=== PATIENT | female | born 1980 | race African-American/Black ===

== ENCOUNTER 2017-01-25 08:09 | Observation (INO) | payer BC ==
[~2017-01-25] VITALS: Ht 162.6 cm; Wt 103.4 kg
--- NOTE | ~2017-01-25 | OP ---
PATIENT NAME: LASHAUN CONROY MEDICAL RECORD: [id number] :78 LOCATION:D.M2 D.2118 ADMISSION DATE:01/25/17 SURGEON: SHARA MCFADDEN MD DATE OF OPERATION: 01/26/2017 PROCEDURE: Left heart cath, selective coronary angiography, right femoral artery approach. CATHETERS: A 5-Latvian sheath, radial and femoral. The procedure was well tolerated. The patient was returned to herrera, sheath removed. Adequate hemostasis. ExoSeal device was placed. FINDINGS: Left ventriculography in 30-degree [place] view: Normal wall motion, normal systolic function. CORONARY ANATOMY. LEFT MAIN: Left main is free of disease. LAD: Free of disease in the diagonal system. CIRCUMFLEX: Free of disease in the marginal system. RIGHT CORONARY ARTERY: Dominant artery, gives rise to PDA, free of disease. IMPRESSION: We were only able to cannulate the right coronary and this was using a guide catheter due to the tortuosity of the subclavian aortic junction. She will not be a candidate for radial artery in the future. TRANSINT:[id number] Voice Confirmation ID: [id number] DOCUMENT ID: [id number] SHARA MCFADDEN MD CC: [id number] DICTATION DATE: 01/26/17 0943 RECREATION MANAGER: 01/26/17 1047 ADM IN [facility] [address] [place] [address]
--- NOTE | ~2017-01-25 | HP ---
PATIENT: LASHAUN OROZCO MEDICAL RECORD: [id number] ACCOUNT: [id number] LOCATION:[address] : 79 ADMISSION DATE: 01/25/17 HISTORY AND PHYSICAL EXAMINATION HISTORY OF PRESENT ILLNESS: Ms. Orozco is a 36-year-old female, who presents to the Emergency Room with chest pain. States she woke up about 4:00 a.m. with left-sided chest pressure. She had some nausea with short of breath, had some left arm symptoms, later numbness. She came to the Emergency Room where she did not get relief until she was given a nitroglycerin. Her EKG shows nothing acute. Her initial cardiac enzymes are negative. She has a history of polycystic ovarian disease and has a strong family cardiac history. She does not smoke. She is placed in observation and a GI consult will be obtained. PAST MEDICAL HISTORY: Significant for known PCOS, -induced hypertension with preeclampsia. She is being worked up for an autoimmune disorder. She has a history of some depression. PAST SURGICAL HISTORY: Include gallbladder surgery, sections, cerclage times 2, tubal ligation and a D&C. ALLERGIES: None. HOME MEDICATIONS: Include metformin 500 t.i.d., bupropion 300 mg a day, docusate and Vyvanse. FAMILY HISTORY: Significant for cardiovascular disease and diabetes. SOCIAL HISTORY: She is never been a smoker. She does not drink. 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 REVIEW OF SYSTEMS: She denies fever. She denies chills or sweats, chest pain as above. She does say she does not have a very active lifestyle. There was some shortness of breath and nausea with above symptoms resolved now after nitroglycerin. No abdominal pain. Denies any recent weight loss. Denies any edema. Denies palpitations or orthopnea. PHYSICAL EXAMINATION: GENERAL: Pleasant, cooperative, no distress at this time. HEENT: Head is normocephalic, sclerae nonicteric. NECK: Soft and supple. HEART: Regular without murmur, rub or gallop. LUNGS: Clear. ABDOMEN: Soft. No rebound or guarding. EXTREMITIES: Lower extremities reveal no edema. NEUROLOGIC: Without any gross focal deficits. IMPRESSION: Chest pain, polycystic ovarian disease with insulin resistance, history of -induced hypertension. PLAN: Observation, check lipids and heart sensitive CRP, cardiology consult, cycle enzymes. We will hold meds for now. TRANSINT:[id number] Voice Confirmation ID: [id number] DOCUMENT ID: [id number] HISTORY AND PHYSICAL [id number] LASHAUN OROZCO MATTHEW DO CC: [id number] DICTATION DATE: 01/25/17 1153 MARKETING SYSTEMS MANAGER: 01/25/17 1214 ADM IN [facility] [address] [place] [address]
--- NOTE | ~2017-01-25 | CN ---
PATIENT NAME:LASHAUN CONROY MEDICAL RECORD: [id number] : 78 LOCATION:D. D.2118 ADMIT DATE: 01/25/17 ACCOUNT: [id number] CONSULTING PHYSICIAN: SHARA MCFADDEN MD REFERRING PHYSICIAN: SALOME VENEGAS DO DATE OF CONSULTATION: 01/25/2017 HISTORY OF PRESENT ILLNESS: A 36-year-old female with history of insulin resistance polycystic ovarian syndrome, admitted with chest pain, pressure and tightness, heaviness on chest, some nausea, queasiness with left arm tingling, resolved with nitroglycerin in the ER. She has a strong family history of both paternal and maternal coronary artery disease, cholesterol has been normal in a fasting state. We are asked to see her concerning cardiovascular status. Currently enzymes are negative. ECG without acute change, symptomatology has resolved. ALLERGIES: None known. MEDICATIONS: Includes Aldactone 25 b.i.d.; Vyvanse 40 daily; Ultram 50 every 8 hours p.r.n., metformin 500 mg daily. SOCIAL HISTORY: She is a nonsmoker and nondrinker. Able to take care of her ADLs. Currently been worked up for connective tissue disorders. REVIEW OF SYSTEMS: The patient reports easy bruising but reports no swollen glands. The patient reports no fever, no night sweats, no significant weight gain, no significant weight loss. No significant exercise tolerance. The patient reports no dry eyes, no irritation, no vision change. Patient reports no difficulty hearing and no ear pain. Patient reports no frequent nose bleeds or nose and sinus problems. Patient reports on arm pain on exertion. No shortness of breath while lying down. No history of heart murmur. Patient reports no cough, no wheezing or coughing up blood. Patient reports no abdominal pain, no vomiting. Normal appetite. No diarrhea and not vomiting blood. No nausea and no constipation. Patient reports no incontinence. No difficulty urinating. No hematuria. No increased frequency. Patient reports no muscle aches. No weakness, no arthralgias, no back pain. No swelling of the extremities. Patient reports no abnormal mole, no jaundice, no rashes. Reports no loss of consciousness. No weakness and no numbness. No seizures, dizziness, or headaches. The patient reports no depression, no sleep disturbance, feeling safe in a relationship and no alcohol abuse. Patient reports on fatigue. Reports no runny nose or sinus pressure. No itching, no hives, and no frequent sneezing. PHYSICAL EXAMINATION: GENERAL: Pleasant female in no acute distress, appears stated age. VITAL SIGNS: 91/72, pulse 86 and regular. HEENT: Normocephalic, atraumatic. NECK: No bruises are noted. HEART: Regular. LUNGS: Good air excursion. ABDOMEN: Soft, nontender. EXTREMITIES: Pulse well preserved, 2+. NEUROLOGIC: Grossly intact. DIAGNOSTIC DATA: ECG without acute changes. Enzymes are negative. CONSULT REPORT [id number] LASHAUN CONROY IMPRESSION: Chest pains. Had a previous chest pain, had no stress or echo at that time. Given recurrent symptomatology, possible other autoimmune disease filled up definitive diagnosis is warranted here. We will plan for diagnostic angiography. Risks and benefits were discussed. TRANSINT:[id number] Voice Confirmation ID: [id number] DOCUMENT ID: [id number] SHARA MCFADDEN MD CC: [id number] DICTATION DATE: 01/25/17 1244 RAISE DRILL OPERATOR: 01/25/17 1441 ADM IN [facility] [address] [place] [id number]
--- NOTE | ~2017-01-25 | HEMODYNAMI ---
PATIENT:LASHAUN CONROY MEDICAL RECORD: [id number] : 78 LOCATION:[address] ADMISSION DATE: 01/25/17 Generatedon:01/26/20179:39 Patient name: LASHAUN CONROY Patient #: [id number] SSN: : 1980 Date of study: 01/26/2017 Page: Of Hemodynamic Procedure Report Patient Data Patient Demographics Procedure consent was obtained First Name: LASHAUN Gender: Female Last Name: MARYCARMEN : 1980 [facility] Initial: L Age: 36 year(s) Patient #: [id number] Race: Black Additional ID: [id number] Contact details [address]: [address] [place] [address] TRAIL State: [place] City: [place] Zip code: [address] Admission Admission Data Admission Date: 01/25/2017 Admission Time: 9:25 Room #: D2118 Lab Results Lab Result Date: 01/26/2017 Lab Result Time: 0:00 Biochemistry Name Units Result Min Max BUN mg/dl 13 --(--*-)-- 7 18 Creatinine mg/dl 0.8 --(-*--)-- 0.6 1.3 CBC Name Units Result Min Max Hemoglobin g/dl 13.2 -*(----)-- 13.5 17.5 Procedure Procedure Types Cath Procedure Diagnostic Procedure C [facility] w/Coronaries Miscellaneous Procedures Moderate Sedation up to 30 minutes Procedure Description Procedure Date Procedure Date: 01/26/2017 Procedure Start Time: 9:13 Procedure End Time: 9:38 Procedure Staff Name Function Eliel Kapadia MD Performing Physician Rowan Hoang RT Scrub Marissa Biswas RN Nurse Rosemary Thakur RT Monitor Indication Angina Procedure Data Cath Procedure Fluoroscopy Diagnostic fluoroscopy Total fluoroscopy Time: 7.7 time: 7.7 min min Diagnostic fluoroscopy Total fluoroscopy dose: 789 dose: 789 mGy mGy Contrast Material Contrast Material Type Amount (ml) Isovue 300 63 Entry Location Entry Primary Successful Side Size Upsize Upsize Entry Closure Cruz ccessful Closure Location (Fr) 1 (Fr) 2 (Fr) Remarks Device Remarks Radial Right 6 Fr Mechanical artery Short Compression Femoral Right 5 Fr Exoseal artery Estimated blood loss: 5 ml Diagnostic catheters Device Type Used For End Catheter Placement Diagnostic Terumo Multi-vessel Optitorque 5Fr [place] 4.5 Angiography catheter Diagnostic Infinity 5Fr Left Coronary JL 4.0 catheter Angiography Diagnostic Infinity 5Fr LV Angiography Pigtail catheter Procedure Complications No complications Procedure Medications Medication Administration Route Dosage Oxygen NC 2 l/min Lidocaine 2% added to field 20 Heparin Flush Bag added to field 2 bags (1000units/500ml NS) 0.9% NaCl I.V. 100 ml/hr Versed I.V. 1 mg Fentanyl I.V. 50 mcg Versed I.V. 1 mg Fentanyl I.V. 50 mcg Radial Cocktail I.A. 1 syringe (Verapomil 2mg/Nitro 400mcg/Heparin 1500units) Versed I.V. 1 mg Fentanyl I.V. 50 mcg Versed I.V. 1 mg Fentanyl I.V. 50 mcg Versed I.V. 1 mg Fentanyl I.V. 50 mcg Hemodynamics Rest HGB: 13.2 (g/dl) Heart Rate: 89 (bpm) Pressure Samples Time Site Value (mmHg) Purpose Heart Use Rate(bpm) 9:34 LV 137/90,33 Snapshot 72 Gradients Valve Time Site Site Mean SEP/DFP Peak To Heart Use 1 2 (mmHg) (sec/min) Peak Rate (mmHg) (bpm) Aortic 9:35 LV AO 83 Snapshots Pre Cath Intra NCS Post Cath Vital Signs Time Heart Resp SPO2 NIBP (mmHg) Rhythm Pain Sedation Rate (ipm) (%) Status Level (bpm) 9:00:51 82 15 99 130/81(110) NSR 0 (11) 10(A) , No pain 9:05:01 92 18 98 137/89(103) NSR 0 (11) 10(A) , No pain 9:09:15 76 18 96 127/69(97) NSR 0 (11) 10(A) , No pain 9:13:25 78 17 95 123/73(90) NSR 0 (11) 10(A) , No pain 9:17:36 84 16 94 103/66(91) NSR 0 (11) 9(A) , No pain 9:21:44 80 19 94 118/71(91) NSR 0 (11) 9(A) , No pain 9:25:56 83 16 97 137/76(99) NSR 0 (11) 9(A) , No pain 9:30:12 96 19 100 134/81(104) NSR 0 (11) 9(A) , No pain 9:34:22 87 15 98 131/80(110) NSR 0 (11) 10(A) , No pain 9:38:36 83 16 97 119/66(98) NSR 0 (11) 10(A) , No pain Medications Time Medication Route Dose Verified Delivered Reason Notes E ffectiveness by by 8:59:57 Oxygen NC 2 l/min Elielcharmaine Cruzie used for SouthmaydChris Biswas RN procedure 9:00:06 Lidocaine 2% added 20ml Eliel Eliel for local to vial [facility] anesthetic field MD LANDRY 9:00:12 Heparin Flush added 2 bags Eliel Eliel used for Bag to [facility] procedure (1000units/500ml field MD LANDRY NS) 9:00:22 0.9% NaCl I.V. 100 Eliel Buffie Per ml/hr KangChris Biswas RN physician 9:05:47 Versed I.V. 1 mg Eliel Buffie for sedation [facility] Chris Biswas RN, MD 9:05:53 Fentanyl I.V. 50 mcg Eliel Anthonyie for sedation [facility] Chris Biswas RN, MD 9:10:32 Versed I.V. 1 mg Eliel Cruzie for sedation [facility]. Chris Biswas RN, MD 9:10:37 Fentanyl I.V. 50 mcg Eliel Buffie for sedation [facility]. Chris Biswas RN, MD 9:16:44 Radial Cocktail I.A. 1 Eliel Eliel for (Verapomil syringe [facility] vasodilation 2mg/Nitro MD LANDRY 400mcg/Heparin 1500units) 9:17:05 Versed I.V. 1 mg Eliel Eliel for sedation KangChris Kapadia MD, MD 9:17:08 Fentanyl I.V. 50 mcg Eliel Augustinory for sedation KangChris Kapadia MD, MD 9:22:54 Versed I.V. 1 mg Eliel Eliel for sedation SouthmaydChris Kapadia MD, MD 9:22:57 Fentanyl I.V. 50 mcg Eliel Julian for sedation [facility]. Chris Kapadia MD, MD 9:30:27 Versed I.V. 1 mg Eliel Julian for sedation [facility]. Chris Kapadia MD, MD 9:30:31 Fentanyl I.V. 50 mcg Eliel Julian for sedation [facility]. Chris Kapadia MD, MD Procedure Log Time Note 8:41:11 Diagnostic Cath Status : Elective 8:41:18 Indication : Angina 8:41:27 Rowan Hoang RT(R) sent for patient. Start room use. 8:41:29 Time tracking: Regular hours 8:41:33 Plan of Care:Hemodynamics will remain stable., Cardiac rhythm will remain stable., Comfort level will be maintained., Respiratory function will remain adequate., Patient/ family verbilizes understanding of procedure., Procedure tolerated without complication., Recovers from procedure without complications.. 8:59:35 Patient received from Med II to CCL 2 Alert and oriented. Tansferred to table in Supine position. 8:59:37 Warm blankets applied, and heaven hugger turned on for patient comfort. 8:59:38 Correct patient and procedure confirmed by team. 8:59:40 Signed procedure consent form obtained from patient. 8:59:41 ECG and BP/O2 sat monitors applied to patient. 8:59:41 Vital chart was started 8:59:45 Baseline sample Acquired. 8:59:49 Rhythm: sinus tachycardia 8:59:50 Full Disclosure recording started 8:59:55 H&P Date Dictated: 01/26/2017 New H&P dictated by physician.. 8:59:57 Oxygen 2 l/min NC was administered by Marissa Biswas RN; used for procedure; 8:59:57 Pre-procedure instructions explained to patient. 8:59:58 Pre-op teaching completed and patient verbalized understanding. 9:00:02 Family in patients room. 9:00:06 Lidocaine 2% 20ml vial added to field was administered by Eliel Kapadia MD; for local anesthetic; 9:00:10 Patient NPO since Midnight. 9:00:12 Heparin Flush Bag (1000units/500ml NS) 2 bags added to field was administered by Eliel Kapadia MD; used for procedure; 9:00:18 Is the patient allergic to Iodine/contrast media? No. 9:00:19 Was the patient premedicated? No 9:00:21 Is patient on blood thinner?No 9:00:22 0.9% NaCl 100 ml/hr I.V. was administered by Marissa Biswas RN; Per physician; 9:00:22 Patient diabetic? Yes. 9:00:23 If diabetic: On Metformin? Yes 9:00:27 If on Metformin: Last Dose? 01/24/2017 9:00:31 Previous problem with sedation/anesthesia? No ? 9:00:33 Snore? Yes 9:00:46 Sleep apnea? No 9:00:47 Deviated septum? No 9:00:48 Opens mouth fully? Yes 9:00:48 Sticks out tongue? Yes 9:00:51 Airway obstruction? No ? 9:00:54 Dentures? No ? 9:00:58 Pre procedure: right dorsailis pedis pulse 2+ Normal; easily identifiable; not easily obliterated 9:01:07 Modified Rock's test Radial < 7 seconds 9:01:09 Patient pain scale 0/10 ?. 9:01:15 IV patent on arrival in left forearm with 0.9% NaCl at [facility]. 9::34 Lab Result : BUN 13 mg/dl 9::34 Lab Result : Hemoglobin 13.2 g/dl 9::34 Lab Result : Creatinine 0.8 mg/dl 9::38 Lab results completed and on chart. 9:01:49 Right Radial & Right Groin area was prepped with chlora-prep and draped in sterile fashion 9:01:51 Alarms reviewed by R. N. 9::51 Sharps counted by scrub and verified by R.N. 9:01:53 Physician arrived 9::54 --------ALL STOP TIME OUT------ 9:01:54 Final Timeout: patient, procedure, and site verified with staff and physician. All members of the team are in agreement. 9:01:56 Right Radial & Right Groin site verified by team. 9:01:59 Physical assessment completed. ASA score P 2 - A patient with mild systemic disease as per Eliel Kapadia MD. 9:02:03 Sedation plan: IV Moderate Sedation Versed, Fentanyl 9:02:09 Use device set Radial Dx 9:02:11 Acist Syringe opened to sterile field. 9:02:11 Medline Cath Pack opened to sterile field. 9:02:11 Bag Decanter opened to sterile field. 9:02:12 Terumo 6Fr Slender Glidesheath opened to sterile field. 9:02:12 St Santino 260cm J .035 wire opened to sterile field. 9:02:13 Acist Hand Control opened to sterile field. 9:02:13 Acist Manifold opened to sterile field. 9:02:14 Tegaderm 4 x 4 opened to sterile field. 9:02:14 MBrace Wrist Support opened to sterile field. 9:05:47 Versed 1 mg I.V. was administered by Marissa Biswas RN; for sedation; 9:05:53 Fentanyl 50 mcg I.V. was administered by Marissa Biswas RN; for sedation; 9:07:31 Zero performed for pressure channel P1 9:10:32 Versed 1 mg I.V. was administered by Marissa Biswas RN; for sedation; 9:10:37 Fentanyl 50 mcg I.V. was administered by Marissa Biswas RN; for sedation; 9:13:40 Procedure started. 9:13:47 Local anesthetic to right radial artery with Lidocaine 2% by Eliel Kapadia MD.INITIAL ACCESS ONLY 9:15:41 A 6 Fr Short sheath was inserted into the Right Radial artery 9:16:03 A Diagnostic Terumo Optitorque 5Fr [place] 4.5 catheter was advanced over the wire and used for Multi-vessel Angiography. 9:16:44 Radial Cocktail (Verapomil 2mg/Nitro 400mcg/Heparin 1500units) 1 syringe I.A. was administered by Eliel Kapadia MD; for vasodilation; 9:17:05 Versed 1 mg I.V. was administered by Eliel Kapadia MD; for sedation; 9:17:08 Fentanyl 50 mcg I.V. was administered by Eliel Kapadia MD; for sedation; 9:18:53 Terumo ANGLE 260cm glide wire opened to sterile field. 9:22:19 Catheter removed. 9:22:31 Medtronic Launcher 6Fr HS I guide catheter opened to sterile field. 9:22:54 Versed 1 mg I.V. was administered by Eliel Kapadia MD; for sedation; 9:22:57 Fentanyl 50 mcg I.V. was administered by Eliel Kapadia MD; for sedation; 9:23:51 RCA angiography performed. 9:24:00 Injector settings: Ml/sec: 3, Volume: 6, 9:24:11 Catheter removed. 9:25:11 Cordis 6FR XBLAD 3.5 guide catheter opened to sterile field. 9:27:04 Catheter removed. 9:27:21 Terumo 5Fr Dennard Sheath opened to sterile field. 9:27:30 Local anesthetic to right femoral artery with Lidocaine 2% by Eliel Kapadia MD.ADDITIONAL ACCESS 9:28:40 A 5 Fr sheath was inserted into the Right Femoral artery 9:30:27 Versed 1 mg I.V. was administered by Eliel Kapadia MD; for sedation; 9:30:31 Fentanyl 50 mcg I.V. was administered by Eliel Kapadia MD; for sedation; 9:31:30 A Diagnostic Infinity 5Fr JL 4.0 catheter was advanced over the wire and used for Left Coronary Angiography. 9:32:09 LCA angiography performed. 9:32:13 Injector settings: Ml/sec: 3, Volume: 6, 9:33:16 Catheter removed. 9:33:31 A Diagnostic Infinity 5Fr Pigtail catheter was advanced over the wire and used for LV Angiography. 9:34:46 LV hemodynamics recorded. 9:34:48 LV gram done using [place] 9:34:51 Injector settings: Ml/sec: 5, Volume: 15, 9:35:00 EF : 60 % 9:35:15 Catheter removed. 9:35:41 Cordis 5Fr Exoseal opened to sterile field. 9:35:57 Sheath removed intact; hemostasis achieved with Mechanical Compression to the Right Radial artery. 9:36:03 Sheath removed intact; hemostasis achieved with Exoseal to the Right Femoral artery. 9:36:07 Procedure ended.(Physican Out) 9:36:14 Fluoroscopy time 07.70 minutes. 9:36:16 Fluoroscopy dose: 789 mGy 9:36:16 Flurop Dose total: 789 9:36:20 Contrast amount:Isovue 300 63ml. 9:36:22 Sharps counted by scrub and verified by R.N. 9:36:23 Insertion/operative site no bleeding no hematoma. 9:36:26 Post-op/insertion site Right Femoral artery dressed using a 4 x 4 and Tegaderm. 9:36:30 Post right radial artery:stable 9:36:33 Post right femoral artery:stable 9:36:35 Post Procedure Pulses reassessed and unchanged 9:36:37 Post procedure rhythm: unchanged. 9:36:40 Estimated blood loss: 5 ml 9:36:41 Post procedure instruction explained to patient.Patient verbalizes understanding. 9:36:42 Patient needs reinforcement of post procedure teaching. 9:38:07 Procedure type changed to Cath procedure, Diagnostic procedure, LHC, LHC w/Coronaries, Miscellaneous Procedures, Moderate Sedation up to 30 minutes 9:38:08 Procedure and supply charges have been captured, reviewed, submitted and are correct. 9:38:13 Procedure Complication : No complications 9:38:15 Vital chart was stopped 9:38:15 See physician's report for complete and final results. 9:38:18 Report given to [facility]. 9:38:21 Patient transfered to [facility] with Stretcher. 9:38:23 Procedure ended. 9:38:23 Full Disclosure recording stopped 9:38:26 End room use (Document Last) Device Usage Item Name Manufacture Quantity Catalog Hospital Part Current Minimal Lot# / Number Charge Number Stock Stock Serial# Code Acist Acist 1 [id number] [id number] [id number] 20 Syringe Medical Systems Inc Medline Cardinal 1 [id number] 723133 56895 421715 5 Cath Pack Health Bag Microtek 1 2001S 735316 98827 519688 5 [employer] Terumo 6Fr Terumo 1 [id number] 448738 600595 827574 [address] St Santino 1 326139 878132 705126 258793 30 260cm J .035 wire Acist Hand Acist 1 47677 424800 127930 872232 5 Control Medical Systems Inc Acist Acist 1 04267 734450 797696 168794 5 Manifold Medical Systems Inc Tegaderm 4 3M 1 1626W 644017 710607 004733 5 x 4 MBrace Advanced 1 140-0250-00 591445 66946 089490 5 Wrist Vascular Support Dynamics Diagnostic Terumo 1 40-6872 914327 646074 275485 5 Terumo Optitorque 5Fr [place] 4.5 catheter Terumo Terumo 1 [id number] 749203 994841 450991 5 ANGLE 260cm glide wire Medtronic Medtronic 1 [id number] 117320 26300 511312 1 Launcher 6Fr HS I guide catheter Cordis 6FR Cardinal 1 [id number] 631881 370666 246010 10 XBLAD 3.5 Health guide catheter Terumo 5Fr Terumo 1 [id number] 750285 831547 399553 40 Dennard Sheath Diagnostic Cardinal 1 [id number] 757907 134398 593192 10 [place] 5Fr JL 4.0 catheter Diagnostic Cardinal 1 [id number] 990706 203553 824815 5 [place] 5Fr Pigtail catheter Cordis 5Fr Cardinal 1 EX500 391911 358238 732486 10 Platform9 Systems Signature Audit [place] Stage Time Signature Unsigned Intra-Procedure 01/26/2017 Rosemary Thakur 9:39:25 AM RT(R) Signatures Monitor : Rosemary Thakur RT Signature : Date : Time : [place] [id number] REBECA MCLAIN EWINGDavid, MARI [address]
[~2017-01-25 08:09] MED LIST: ADIPEX-P37.5 MG PO; ALDACTONE50 MG PO; BUPROPION XL300 MG PO; COLACE100 MG PO; GLUCOPHAGE500 MG PO
[2017-01-25 08:36] LABS: BASOPHILS 0.2 % (0-2); EOSINOPHILS 3.2 % (0-7); HEMATOCRIT 39.4 % (36.0-48.0); HEMOGLOBIN 13.2 g/dL (12-16); IMMATURE GRANULOCYTES 0.2 % (0-5); MCHC 33.5 g/dL (31.0-37.0); MCV 92.5 fL (80.0-100.0); MEAN PLATELET VOLUME 10.9 fL (7.4-10.4); MONOCYTES 10.6 % (2-11); NEUTROPHILS 45.8 % (40-80); PLATELET COUNT 230 10x3/uL (130-400); RBC 4.26 10x6/uL (4.00-5.40); RDW 12.4 % (11.5-14.5); WBC 5.3 10x3/uL (4.8-10.8)
[2017-01-25 08:50] LABS: ALBUMIN 3.8 g/dL (3.4-5.0); ALKALINE PHOSPHATASE 37 U/L (46-116); ALT (SGPT) 23 U/L (10-68); BILIRUBIN - TOTAL 0.82 mg/dL (0.2-1.3); CALC OSMOLALITY 275 mosm/kg (275-300); CALCIUM 8.9 mg/dL (8.5-10.1); CARBON DIOXIDE 29.2 mmol/L (21.0-32.0); CHLORIDE - SERUM 104 mmol/L (98-107); CREATININE - SERUM 0.8 mg/dL (0.6-1.3); GLUCOSE 98 mg/dL (74-106); KETONE - SERUM NEGATIVE (NEGATIVE); POTASSIUM - SERUM 3.3 mmol/L (3.5-5.1); PROTEIN - SERUM 7.2 g/dL (6.4-8.2); SODIUM 138 mmol/L (136-145); UREA NITROGEN 13 mg/dL (7-18); eGFR NON AFRICAN AMERICAN 85 mL/min (90-120)
[2017-01-25 08:53] LABS: TROPONIN-I < 0.017 ng/mL (0.000-0.060)
[2017-01-25 09:39] LABS: CKMB 1.6 U/L (0.0-3.6); CREATINE KINASE 182 UL (21-215)
--- NOTE | 2017-01-25 10:05 | NUR ---
RECEIVED PT TO ROOM 2117 VIA W/C IN STABLE CONDITION VSS RESP UNLABORED STATES CHEST PAIN 05/13 DENIES ANY NEEDS AT THIS TIME NAD NOTED
[2017-01-25 10:26] VITALS: BP 91/72; Ht 162.6 cm; Wt 103.4 kg
[2017-01-25] MEDS ORDERED: ULTRAM50 MG PO (10:48)
[2017-01-25] MEDS ORDERED: VYVANSE40 MG PO (10:49)
[2017-01-25] MEDS ORDERED: GLUCOPHAGE500 MG PO (10:50)
[2017-01-25] MEDS ORDERED: VITAMIN D5000 UNIT PO (10:51)
[2017-01-25] MEDS ORDERED: BIOTIN5 MG PO (10:52)
[2017-01-25 12:00] VITALS: BP 133/79
[2017-01-25 12:17] LABS: CHOL - HDL RATIO 3.4 ratio (2.3-4.1); LDL-HDL RATIO 2.1 ratio (1.5-3.5)
[2017-01-25 12:24] LABS: CKMB 1.3 U/L (0.0-3.6); CREATINE KINASE 166 UL (21-215)
[2017-01-25 12:25] LABS: TROPONIN-I < 0.017 ng/mL (0.000-0.060)
--- NOTE | 2017-01-25 14:57 | NUR ---
RESTING QUIETLY DENIES ANY NEEDS OR DISCOMFORT AT THIS TIME
[2017-01-25 16:00] VITALS: BP 107/68
[2017-01-25] MEDS ORDERED: COLACE100 MG PO (18:36)
[2017-01-25 19:08] LABS: CKMB 1.1 U/L (0.0-3.6); CREATINE KINASE 156 UL (21-215); TROPONIN-I < 0.017 ng/mL (0.000-0.060)
[2017-01-25 20:00] VITALS: BP 133/80
--- NOTE | 2017-01-26 02:08 | NUR ---
PT RESTING WITH EYES CLSED AND RESP EVEN UNLABORED. CALL LIGHT WITHIN REACH. NO NEEDS VOICED. WILL CONT TO MONITOR.
[2017-01-26 04:00] VITALS: BP 93/60
--- NOTE | 2017-01-26 06:07 | NUR ---
PT SIGNS INFORMED CONSENTS FOR HEART CATH TODAY. PT ALSO SIGNS BLOOD REFUSAL D/T TAOIST PREFERENCE.
[2017-01-26 08:00] VITALS: BP 113/76
--- NOTE | 2017-01-26 08:47 | NUR ---
PRE-OPS GIVEN. TO HEAT AND VENT AIRCRAFT MECHANIC BY BED.
--- NOTE | 2017-01-26 10:00 | NUR ---
BACK FROM CAP AND STUD MACHINE OPERATOR. VS WNL. RIGHT GROIN STABLE WITHOUT BLEEDING OR HEMATOMA NOTED. TR BAND INTACT TO RIGHT WRIST. WILL MONITOR.
--- NOTE | 2017-01-26 12:00 | NUR ---
BED REST UP. GROIN STABLE. TR BAND STIIL INTACT DUE TO BLEEDING AT SITE.
--- NOTE | 2017-01-26 12:53 | NUR ---
TR BAND DCD WITHOUT BLEEDING OR HEMATOMA NOTED. WILL MONITOR.
--- NOTE | 2017-01-26 13:01 | NUR ---
IV AND TELEMETRY DCD. DC PLANS GIVEN. UNDERSTANDING VOICED.
--- NOTE | 2017-01-26 13:29 | NUR ---
escorted to car by w/c.
== END 2017-01-26 13:30 | disposition home or self-care (01) ==
LOC: D.ER 08:09 → D.M2 09:25 → OBSVTIME 09:25 → D.M2 01-26 13:30
PROVIDERS: Emergency Medicine; ADMIT Family Medicine
DX: R07.89 Other chest pain (principal); F32.9 Major depressive disorder, single episode, unspecified; E28.2 Polycystic ovarian syndrome

== ENCOUNTER → 2017-03-05 13:00 | Outpatient (CLI) | payer BC ==
[~2017-03-05 13:00] MED LIST changes: +BIOTIN5 MG PO; +ULTRAM50 MG PO; +VITAMIN D5000 UNIT PO; +VYVANSE40 MG PO
== END | disposition home or self-care (01) ==
LOC: D.MRI 13:00
DX: R20.9 Unspecified disturbances of skin sensation (principal)

== ENCOUNTER 2017-06-17 08:36 | Day surgery (SDC) | payer BC ==
[2017-06-16 17:05] LABS: BASOPHILS 0.2 % (0-2); EOSINOPHILS 0.2 % (0-7); HEMATOCRIT 38.4 % (36.0-48.0); LYMPHOCYTES 46.7 % (15-50); MCH 31.2 pg (26.0-34.0); MCHC 33.9 g/dL (31.0-37.0); MCV 92.1 fL (80.0-100.0); MEAN PLATELET VOLUME 10.7 fL (7.4-10.4); NEUTROPHILS 43.9 % (40-80); PLATELET COUNT 235 10x3/uL (130-400); RBC 4.17 10x6/uL (4.00-5.40); RDW 12.1 % (11.5-14.5); WBC 5.6 10x3/uL (4.8-10.8)
--- NOTE | ~2017-06-17 | OP ---
PATIENT NAME: LASHAUN CONROY MEDICAL RECORD: [id number] :78 LOCATION:D.OPS ADMISSION DATE: SURGEON: LUCAS LYNN MD DATE OF OPERATION: 06/17/2017 PREOPERATIVE DIAGNOSES: Pelvic pain. POSTOPERATIVE DIAGNOSES: 1. Left ovarian cyst. 2. Pelvic adhesions. PROCEDURES: 1. Diagnostic laparoscopy. 2. Lysis of adhesions. 3. Ovarian drilling with cystectomy. SURGEON: Lucas Lynn MD ANESTHESIOLOGIST: Davion Soares MD ANESTHETIC: General. FINDINGS: A 2-cm left cyst. Left ovary has smooth contour. Right ovary is unremarkable. Uterus is densely adhesed to the anterior abdominal wall. EBL: Less than or equal to 150 cc. FLUIDS: Lactated Ringer's 1200 cc. URINE OUTPUT: Quantity sufficient cath prior to the procedure. COMPLICATION: None. DRAIN: None. INDICATION: The patient is a 36-year-old female with intense dysmenorrhea and dyspareunia. The patient has been followed conservatively and is consented for diagnostic laparoscopy and any indicated procedure. DESCRIPTION OF PROCEDURE: After informed consent was assured, the patient was taken to the operating room, where anesthetic was obtained without difficulty. Pneumoperitoneum was developed after trocar was inserted under direct visualization. The patient was placed in Trendelenburg position. Accessory port was placed in the right lower quadrant. A second port was placed in the left lower quadrant. Dense adhesions of the uterus to the anterior abdominal wall were seen. Coagulation cutter was now used to compress, coagulate, and then separate the adhesions to the uterus. The left ovary was visualized and smooth capsule was noted with a cyst. Using Bovie cautery, the cyst was opened and drained. The attention was directed back to the uterus, where the dissection sites were inspected and found to be hemostatic. The dense adhesions incorporated the bladder and it was felt unwise to continue the laparoscopic dissection. The pneumoperitoneum was now released and the accessory ports were removed under direct visualization. Port sites were reapproximated with subcuticular stitch and Dermabond was applied. Sponge, lap, and needle counts were correct times 2. OPERATIVE REPORT [id number] LASHAUN CONROY TRANSINT:[id number] Voice Confirmation ID: [id number] DOCUMENT ID: [id number] LUCAS LYNN MD at 1251 CC: [id number] DICTATION DATE: 07/07/17 1230 ROLL UP HELPER: 07/07/17 1520 [facility] 06/17/17 [place] [id number] [place] [id number]
[~2017-06-17 08:36] MED LIST changes: +KLONOPIN0.5 MG PO; +METFORMIN HCL500 M1 PO; +MYDAYIS PO; +PRISTIQ50 MG PO
[2017-06-17 09:26] VITALS: BP 144/84; BMI 37.5
[2017-06-17] MEDS ORDERED: PERCOCET 10/3251 TA1 PO (15:05)
== END 2017-06-17 16:50 | disposition home or self-care (01) ==
LOC: D.OPS 08:36 → D.PAN 09:00 → D.OPS 09:00
PROVIDERS: Obstetrics & Gynecology
DX: N83.202 Unspecified ovarian cyst, left side (principal); N73.6 Female pelvic peritoneal adhesions (postinfective); Z01.812 Encounter for preprocedural laboratory examination

== ENCOUNTER 2019-01-30 08:43 | Emergency (ER) | payer OTHER ==
[~2019-01-30] VITALS: Ht 162.6 cm; Wt 118.2 kg
[~2019-01-30 08:43] MED LIST changes: +PERCOCET 10/3251 TA1 PO
[2019-01-30 08:51] VITALS: Ht 162.6 cm; Wt 118.2 kg
[2019-01-30 09:38] LABS: BASOPHILS 0.3 % (0-2); EOSINOPHILS 1.1 % (0-7); HEMATOCRIT 39.9 % (36.0-48.0); HEMOGLOBIN 13.2 g/dL (12-16); IMMATURE GRANULOCYTES 0.3 % (0-5); LYMPHOCYTES 24.9 % (15-50); MCH 31.1 pg (26.0-34.0); MCHC 33.1 g/dL (31.0-37.0); MCV 93.9 fL (80.0-100.0); MEAN PLATELET VOLUME 10.6 fL (7.4-10.4); MONOCYTES 5.9 % (2-11); NEUTROPHILS 67.5 % (40-80); PLATELET COUNT 265 10x3/uL (130-400); RBC 4.25 10x6/uL (4.00-5.40); RDW 12.5 % (11.5-14.5); WBC 6.6 10x3/uL (4.8-10.8)
[2019-01-30 09:50] LABS: HCG SERUM NEGATIVE (NEGATIVE)
[2019-01-30 09:55] LABS: ALBUMIN 3.9 g/dL (3.4-5.0); ALKALINE PHOSPHATASE 46 U/L (46-116); ALT (SGPT) 19 U/L (10-68); AMYLASE - SERUM 49 U/L (25-115); BILIRUBIN - TOTAL 0.54 mg/dL (0.2-1.3); CALC OSMOLALITY 279 mosm/kg (275-300); CALCIUM 8.7 mg/dL (8.5-10.1); CARBON DIOXIDE 26.7 mmol/L (21.0-32.0); CHLORIDE - SERUM 105 mmol/L (98-107); CREATININE - SERUM 0.8 mg/dL (0.6-1.3); GLUCOSE 134 mg/dL (74-106); LIPASE 92 U/L (73-393); POTASSIUM - SERUM 3.7 mmol/L (3.5-5.1); PROTEIN - SERUM 7.5 g/dL (6.4-8.2); SODIUM 140 mmol/L (136-145); UREA NITROGEN 11 mg/dL (7-18); eGFR NON AFRICAN AMERICAN 85 mL/min (90-120)
[2019-01-30 10:35] LABS: APPEARANCE CLEAR (CLEAR); BACTERIA FEW /hpf (NEGATIVE); BILIRUBIN NEGATIVE (NEGATIVE); COLOR YELLOW (YELLOW); EPITHELIAL CELLS 0-5 /hpf (0-5); GLUCOSE NEGATIVE (NEGATIVE); KETONE NEGATIVE (NEGATIVE); MUCUS >1+ /lpf (NONE SEEN); NITRITE NEGATIVE (NEGATIVE); PROTEIN NEGATIVE (NEGATIVE); SPECIFIC GRAVITY 1.015 (1.005-1.020); UROBILINOGEN NORMAL (NORMAL); WHITE CELLS - URINE 0-5 /hpf (NEGATIVE)
[2019-01-30] MEDS ORDERED: TYLENOL W/CODEI1 TAB PO (14:28)
[2019-01-30 15:08] VITALS: BP 142/77
[2019-02-02] MEDS ORDERED: TRAZODONE HCL150 MG PO (12:55)
[2019-02-02] MEDS ORDERED: CYMBALTA60 MG PO (12:55)
[2019-02-02] MEDS ORDERED: TENORMIN25 MG PO (12:55)
== END 2019-01-30 15:09 | disposition home or self-care (01) ==
LOC: D.ER 08:43
PROVIDERS: Family Medicine
DX: N83.202 Unspecified ovarian cyst, left side (principal)

== ENCOUNTER 2019-02-03 07:00 | Day surgery (SDC) | payer OTHER ==
[2019-02-02 13:54] LABS: BASOPHILS 0.1 % (0-2); HEMATOCRIT 35.6 % (36.0-48.0); HEMOGLOBIN 11.9 g/dL (12-16); IMMATURE GRANULOCYTES 0.1 % (0-5); LYMPHOCYTES 24.2 % (15-50); MCH 31.5 pg (26.0-34.0); MCHC 33.4 g/dL (31.0-37.0); MCV 94.2 fL (80.0-100.0); MEAN PLATELET VOLUME 10.5 fL (7.4-10.4); MONOCYTES 12.5 % (2-11); NEUTROPHILS 62.1 % (40-80); PLATELET COUNT 232 10x3/uL (130-400); RBC 3.78 10x6/uL (4.00-5.40); RDW 12.4 % (11.5-14.5); WBC 6.7 10x3/uL (4.8-10.8)
[2019-02-02 13:57] LABS: CALC OSMOLALITY 280 mosm/kg (275-300); CALCIUM 8.4 mg/dL (8.5-10.1); CARBON DIOXIDE 30.6 mmol/L (21.0-32.0); CHLORIDE - SERUM 103 mmol/L (98-107); CREATININE - SERUM 0.8 mg/dL (0.6-1.3); GLUCOSE 98 mg/dL (74-106); POTASSIUM - SERUM 3.7 mmol/L (3.5-5.1); SODIUM 140 mmol/L (136-145); UREA NITROGEN 17 mg/dL (7-18); eGFR NON AFRICAN AMERICAN 85 mL/min (90-120)
[2019-02-03] VITALS (12 sets, daily range): BP systolic 91–161; BP diastolic 48–86; Ht 162.6 cm; Wt 113.9 kg
[~2019-02-03] VITALS: Ht 162.6 cm; Wt 113.9 kg
[~2019-02-03 07:00] MED LIST changes: +CYMBALTA60 MG PO; +TENORMIN25 MG PO; +TRAZODONE HCL150 MG PO; +TYLENOL W/CODEI1 TAB PO
[2019-02-03 09:32] LABS: HCG URINE NEGATIVE (NEGATIVE)
--- NOTE | 2019-02-03 11:15 | NUR ---
SCOPE PATCH BEHIND RT EAR ON ADMIT
--- NOTE | 2019-02-03 11:25 | NUR ---
PATIENT CARE ASSUMED AT THIS TIME. REPORT TAKEN FROM Dinorah FIELDS RN.
--- NOTE | 2019-02-03 12:05 | NUR ---
RECEIVED WELL NOURISHED 38Y/O BF FROM PACU ACCOMPANIED BY PACU NURSE HAL. SKIN WARM DRY AND MUCUS MEMBRANES PINK. PACU NURSE REPORTS O2 OFF UPON LEAVING PACU; O2 SAT NOW 96% ON ROOM AIR. EYES CLOSED BUT OPENS ON COMMAND AND IS ALERT AND ORIENTED WHEN RESPONDING TO VERBAL STIMULI. IV LEFT WRIST WITH LR KVO AND NO SIGNS OF COMPLICATIONS. WHITLOCK IS PATENT WITH CONCENTRATED ROLAN URINE. UMBILICAL STAB WOUND OOZING SMALL AMT OF RED DRAINAGE. LOWER TRANSVERSE ABD INCISION CDI. PANG. BBS= AND CTA. NO BOWEL SOUNDS. ORIENTED TO ROOM. FAMILY AT BEDSIDE. VSS.
--- NOTE | 2019-02-03 12:50 | NUR ---
100ML URINE DRAINED FROM BAG. PACU NURSE REPORTED THAT ALL URINE IN BAG AND TUBING WAS FROM BEGINNING OF CASE AND HAD NOT BEEN DRAINED OR CLAIMED.
--- NOTE | 2019-02-03 13:34 | NUR ---
LR 1000ML ADDED TO IV.
--- NOTE | 2019-02-03 14:20 | NUR ---
40ML UOP SINCE LR ADDED AT 150ML/HR. UMBILICAL INCISION OOZING RED DRAINAGE; 4X4 ADDED TO DETERMINE AMT. REMAINS STABLE WITH NO SIGNS OF DISTRESS. CONT TO REPORT PAIN AT LEVEL 4 ON 0-10 SCALE.
--- NOTE | 2019-02-03 16:15 | NUR ---
pt rings call light and requests solid food. phoned dr paz and he states that pt may have solid foods, may remove murphy cath when pt desires. informed pt of this.
--- NOTE | 2019-02-03 16:25 | NUR ---
4x4 noted at umbilicus with small amt bloody drainage. 4x4 replaced. noted incision at umbilicus. bikini line abd dressing on- cd&i.
--- NOTE | 2019-02-03 16:34 | NUR ---
sitting on side of bed. clear liq diet served.
--- NOTE | 2019-02-03 17:00 | NUR ---
CATHETER REMOVED NOTING 200ML URINE IN TUBING AND BAG. PATIENT INSTRUCTED TO VOID IN RECEPTACLE PLACED IN TOILET. PATIENT UP AND ABOUT IN ROOM. PRESSURE DSG APPLIED TO UMBILICUS SURGICAL SITE. GAUZE REMOVED NOTED WITH APPROX 1 INCH ROUND AREA OF RED DRNG. LOWER ABD TRANSVERSE SURGICAL DSG CDI. NO SIGNS OF DISTRESS. VSS. 3 FAMILY MEMBERS AT BEDSIDE.
--- NOTE | 2019-02-03 17:12 | NUR ---
REPORTS PAIN AT LEVEL 3-4 ON 0-10 SCALE.
--- NOTE | 2019-02-03 17:42 | NUR ---
RINGS CALL LIGHT- REQUESTING PAIN MEDICATION- RATES PAIN A 5 ON SCALE OF 0-10. STATES THAT PAIN IS NOT BAD ON THURSDAY.
--- NOTE | 2019-02-03 19:00 | NUR ---
DR Chucky LYNN NOTIFIED OF UMBILICAL WOUND OOZING AND NOW OPEN APPROX 2CM; RECEIVED ORDER TO STERI STRIP UMBILICAL WOUND. PATIENT NOTIFIED OF SAME. UMBILICAL AREA CLEANSED WITH BETADINE SURROUNDING WOUND THEN MASTISOL TO PERIMETER TO APPROX 1 INCH THEN 1/4 INCH STERI STRIPS APPLIED X 3 THEN COVERED WITH STERILE GAUZE AND PRESSURE DRESSING APPLIED. PRINCESS WELL.
--- NOTE | 2019-02-03 20:00 | NUR ---
PM ASSESSMENT COMPLETED CHARTED ON FLOWSHEET. PT REPORTS BURNING PAIN AT INCISION SITE AT /10. DRESSING TO ABDOMEN C/D/I. SCOPE WOUND TO BELLY BUTTON WITHOUT DRAINAGE, STERISTRIPS INTACT. PT EDUCATED TO CALL RN AFTER FIRST VOID POST WHITLOCK REMOVAL. PT REPORTS PASSING GAS. SCDS ON. ENCOURAGED INCENTIVE SPIROMETER USE, PT STATES UNDERSTANDING. PT DENIES ALL OTHER NEEDS. FAMILY AT BEDSIDE. SRUPX2, CALL LIGHT AND PHONE WITHIN REACH.
--- NOTE | 2019-02-03 20:30 | NUR ---
PT AMBULATORY IN HALLWAY. DENIES NEEDS AT THIS TIME.
--- NOTE | 2019-02-03 22:02 | NUR ---
THIS RN TO BEDSIDE FOR ROUNDING. PT REQUESTING ADDITIONAL PILLOW AND DEMEROL TAB. PILLOW PROVIDED. DEMEROL 50MG PO GIVEN. SEE EMAR.
--- NOTE | 2019-02-03 22:25 | NUR ---
THIS RN CALLED TO ROOM TO EMPTY URINE HAT. 150CC CLEAR URINE EMPTIED. PT REPORTS PAIN MED EFFECTIVE, PAIN AT 2/10. DENIES ALL OTHER NEEDS AT THIS TIME. SRUPX2, CALL LIGHT AND PHONE WITHIN REACH.
--- NOTE | 2019-02-03 23:45 | NUR ---
ROUNDING COMPLETED BY THIS NURSE. VSS. PT RATES PAIN AT INCISION SITE AT 3/10. ENCOURAGED USE OF INCENTIVE SPIROMETER DURING WAKE HOURS, PT STATED UNDERSTANDING. DENIES ALL OTHER NEEDS AT THIS TIME. SRUPX2, CALL LIGHT AND PHONE WITHIN REACH.
--- NOTE | 2019-02-04 00:50 | NUR ---
ROUNDING COMPLETED BY THIS RN. PT SLEEPING. RESPIRATIONS EVEN AND UNLABORED. FAMILY AT BEDSIDE. SRUPX2, CALL LIGHT AND PHONE WITHIN REACH.
--- NOTE | 2019-02-04 02:13 | NUR ---
ROUNDING COMPLETED BY THIS RN. TORADOL ADMIN SCHEDULED, SEE EMAR. PT SLEEPING, RESPIRATIONS EVEN AND UNLABORED. EMPTIED 200CC CLEAR YELLOW URINE. NO DISTRESS NOTED. SRUPX2, CALL LIGHT AND PHONE WITHIN REACH.
[2019-02-04 04:01] VITALS: BP 97/55
--- NOTE | 2019-02-04 04:01 | NUR ---
ROUNDING COMPLETED BY THIS RN. VSS. PT SLEEPING. RESPIRATIONS EVEN AND UNLABORED. NEW BAG OF LR HUNG AT 150, SEE EMAR. SRUPX2, CALL LIGHT AND PHONE WITHIN REACH.
--- NOTE | 2019-02-04 05:19 | NUR ---
ROUNDING COMPLETED BY THIS RN. 300 CC LIGHT YELLOW URINE EMPTIED. PT SLEEPING. RESPIRATIONS EVEN AND UNLABORED, NO DISTRESS NOTED. FAMILY AT BEDSIDE. SRUPX2, CALL LIGHT AND PHONE WITHIN REACH.
--- NOTE | 2019-02-04 06:16 | NUR ---
ROUNDING COMPLETED BY THIS RN. PT SLEEPING. RESPIRATIONS EVEN AND UNLABORED. NO DISTRESS NOTED. FAMILY AT BEDSIDE. SRUPX2, CALL LIGHT AND PHONE WITHIN REACH.
--- NOTE | 2019-02-04 07:30 | NUR ---
THIS RN TO ROOM FOR SHIFT ASSESSMENT. PT SITTING UP ON BEDSIDE, EATING BREAKFAST. ORANGE JUICE PROVIDED PER REQUEST. PT DENIES FURTHER NEEDS, LEFT UNDISTURBED TO FINISH BREAKFAST. WILL RETURN FOR SHIFT ASSESSMENT.
[2019-02-04 07:58] VITALS: BP 116/70
--- NOTE | 2019-02-04 07:58 | NUR ---
THIS RN RETURNS TO ROOM FOR SHIFT ASSESSMENT. VSS, ASSESSMENT COMPLETE, SEE FLOWSHEET FOR DOC. PT AAOx3, RATES PAIN 7/10 AT INCISION, BURNING, REQUESTING PAIN MEDICATIN. FLUIDS INFUSING ORDERED TO PT'S LEFT HAND PIV. NO SIGNS OF PHLEBITIS OR INFILTRATION. DRESSINGS OVER LAP INCISION AT UMBILICUS AND LOW TRANSVERSE ABD INCISION ARE BOTH C/D/I. NO VAGINAL BLEEDING NOTED TO PERIPAD. POC DISCUSSED WITH PT, STATES SHE IS READY TO GO HOME. WILL ADMIN PAIN MED ORDERED, SEE EMAR FOR DOC. SRUx2, CL IN REACH. SIG OTHER IN ROOM WITH PT.
--- NOTE | 2019-02-04 08:10 | NUR ---
PT ADMIN SCHEDULED MED AND PAIN MED ORDERED, SEE EMAR. PT ALSO PROVIDED WITH ICE PACK TO INCISION FOR BURNING PAIN. WILL RETURN TO REASSESS PAIN. SRUx2, CL IN REACH.
--- NOTE | 2019-02-04 09:00 | NUR ---
THIS RN TO ROOM TO REASSESS PAIN AT 0857. PT RATES PAIN 3/10, STATES MEDS AND ICE PACK ARE HELPING. PT DENIES NEEDS AT THIS TIME, SRUx2, CL IN REACH. SIG OTHER AT BEDSIDE.
--- NOTE | 2019-02-04 09:30 | NUR ---
DR LYNN TO PT ROOM FOR ROUNDING, DISCUSSING DISHARGE PLAN FOR PT. VERBAL DISCHARGE ORDER RCVD.
--- NOTE | 2019-02-04 10:30 | NUR ---
THIS RN TO ROOM FOR PT CHECK. PT RESTING IN BED, DENIES NEEDS AT THIS TIME. D/C PLAN DISCUSSED. PT STATES SHE IS "IN NO ERVIN." Fernando, CL IN REACH. WILL CONT TO MONITOR.
[2019-02-04] MEDS ORDERED: MEPERIDINE HCL50 MG PO (11:18)
[2019-02-04] MEDS ORDERED: TORADOL10 MG PO (11:18)
--- NOTE | 2019-02-04 11:50 | NUR ---
PT GIVEN DISCHARGE INSTRUCTIONS WELL PROVIDED PRESCRIPTIONS FOR PAIN CONTROL POST D/C TO HOME. PT VERBALIZES UNDERSTANDIND, DENIES QUESTIONS. PT STATES SHE WANTS TO WAIT AND EAT LUNCH BEFORE LEAVING FOR HOME. PT INSTRUCTED TO CALL OUT WHEN READY FOR W/C OUT. UNDERSTANDING VERBALIZED.
--- NOTE | 2019-02-04 12:30 | NUR ---
PT CALLS OUT [employer] LIGHT FOR NEW ICE PACK AND DEMEROL FOR PAIN CONTROL FOR RIDE HOME. PT ADMIN PRN PAIN MED ORDERED, SEE EMAR FOR DOC. PT PROVIDED WITH NEW ICE PACK AND SMALL SURGERY PILLOW FOR INCISION SUPPORT. PT DENIES FURTHER NEEDS, IS SITTING UP ON BEDSIDE EATING LUNCH. PT STATES WILL CALL WHEN READY FOR W/C OUT.
--- NOTE | 2019-02-04 12:50 | NUR ---
PT TAKEN OUT VIA W/C TO PRIVATE VEHICLE BY STAFF, SIG OTHER TO DRIVE HOME.
--- NOTE | 2019-03-01 07:47 | OP ---
PATIENT NAME: LASHAUN CONROY MEDICAL RECORD: [id number] :78 LOCATION:D.OPS ADMISSION DATE: SURGEON: LUCAS LYNN MD DATE OF OPERATION: 02/03/2019 PREOPERATIVE DIAGNOSES: 1. Abdominal pain. 2. Suspect ovarian torsion. POSTOPERATIVE DIAGNOSES: 1. Ovarian torsion. 2. Endometriosis. 3. Pelvic adhesions. PROCEDURES PERFORMED: 1. Diagnostic laparoscopy. 2. Exploratory laparotomy. 3. Right salpingo-oophorectomy. SURGEON: Lucas Lynn MD ANESTHESIOLOGIST: Dr. Mc ANESTHETIC: General. FINDINGS: Adhesions to the uterus to the anterior wall, active endometriosis is present on the uterus. The right tube and ovary were torsed 360 degrees with a large hemorrhagic cyst of the right ovary. SPECIMENS: Right ovary and tube. SPECIMEN DISPOSITION: Pathology. ESTIMATED BLOOD LOSS: 150 cc. FLUIDS: 1600 cc lactated Ringer's. URINE OUTPUT: 30 cc. DRAINS: Layne to gravity. COMPLICATIONS: None. INDICATIONS: The patient is a 38-year-old female with a recent history of abdominal pain. The patient's pain has waxed and waned with intensity to the point of subacute abdomen. The patient is found on workup to have a large mass from the ovary, which appears to be arising from the left. The patient is consented for diagnostic laparoscopy and any indicated procedure. DESCRIPTION OF PROCEDURE: After informed consent was assured, the patient was taken to the operating room where anesthetic was obtained. After prepping and draping, an incision was made at the umbilicus to accommodate a 5-mm trocar. This trocar was inserted with the above findings. Given the size of the mass which appeared to be excess of 8 cm and the adhesive disease felt prudent to convert to an open procedure. A Pfannenstiel incision is now made. The abdomen OPERATIVE REPORT [id number] LASHAUN CONROY was entered sharply. The mass and tube was inspected with finding of torsion of 360 degrees. The ovary and tube is now lifted to the incision where Carlos clamp was placed at the cornual region. This pedicle was developed sharply and the tube and mass along with that ovary were passed off the field. A [id number] tie on a pass and a adgn-mjb-zak stitches blood here for hemostasis. The pelvis is now irrigated and irrigant removed. The fascia was reapproximated with absorbable suture. Subcutaneous tissues inspected. Bleeding vessels cauterized and the skin not reapproximated. Sterile dressing is applied. Sponge, lap, and needle counts correct times 2 at the close of this procedure. The patient was awakened and went to the recovery room in stable condition. TRANSINT:[id number] Voice Confirmation ID: [id number] DOCUMENT ID: [id number] LUCAS LYNN MD at 0747 CC: [id number] DICTATION DATE: 02/24/191719 BUSINESS RELATIONS MANAGER: 02/24/191936 [facility] [place] 02/04/[address] [facility] [address] [place] [address]
== END 2019-02-04 12:50 | disposition home or self-care (01) ==
LOC: D.OPS 07:00 → D.LD 07:00 → D.OPS 09:00 → D.LD 11:16 → D.OPS 02-04 12:50
PROVIDERS: ATTEND Obstetrics & Gynecology
DX: N83.53 Torsion of ovary, ovarian pedicle and fallopian tube (principal); N80.0 Endometriosis of uterus

== ENCOUNTER 2020-09-25 09:15 | Outpatient (CLI) | payer BC, OTHER ==
[2019-02-03 07:32] VITALS: BMI 43.2
[~2020-09-25 09:15] MED LIST changes: +MEPERIDINE HCL50 MG PO; +TORADOL10 MG PO
== END 2020-09-25 09:45 | disposition home or self-care (01) ==
LOC: D.MAMMO 09:15
PROVIDERS: ATTEND Obstetrics & Gynecology
DX: Z12.31 Encounter for screening mammogram for malignant neoplasm of breast (principal)

== ENCOUNTER → 2020-09-26 10:24 | Outpatient (CLI) | payer BC, OTHER ==
[2019-02-03 07:32] VITALS: BMI 43.2
== END | disposition home or self-care (01) ==
LOC: D.US 10:24
PROVIDERS: ATTEND Obstetrics & Gynecology
DX: R92.8 Other abnormal and inconclusive findings on diagnostic imaging of breast (principal)